=== PATIENT | male | born 1985 | race African-American/Black ===

== ENCOUNTER 2017-05-01 06:39 | Emergency (ER) | payer MEDICAID ==
[2017-05-01 07:01] LABS: HEMATOCRIT 44.9 % (42.0-54.0); HEMOGLOBIN 15.1 g/dL (13.5-17.5); LYMPHOCYTES 19.6 % (15-50); MCH 30.2 pg (26.0-34.0); MCHC 33.6 g/dL (31.0-37.0); MCV 89.8 fL (80.0-100.0); MEAN PLATELET VOLUME 9.4 fL (7.4-10.4); NEUTROPHILS 75.1 % (40-80); PLATELET COUNT 274 10x3/uL (130-400); RDW 14.7 % (11.5-14.5)
[2017-05-01 07:15] LABS: ALBUMIN 3.7 g/dL (3.4-5.0); ALKALINE PHOSPHATASE 84 U/L (46-116); ALT (SGPT) 101 U/L (10-68); BILIRUBIN - TOTAL 0.53 mg/dL (0.2-1.3); CALC OSMOLALITY 268 mosm/kg (275-300); CALCIUM 9.1 mg/dL (8.5-10.1); CARBON DIOXIDE 24.8 mmol/L (21.0-32.0); CHLORIDE - SERUM 99 mmol/L (98-107); CREATININE - SERUM 1.1 mg/dL (0.6-1.3); GLUCOSE 123 mg/dL (74-106); PROTEIN - SERUM 8.2 g/dL (6.4-8.2); SODIUM 134 mmol/L (136-145); UREA NITROGEN 12 mg/dL (7-18); eGFR NON AFRICAN AMERICAN 82 mL/min (90-120)
[2017-05-01 07:29] LABS: APPEARANCE CLEAR (CLEAR); BACTERIA FEW /hpf (NONE SEEN); BILIRUBIN NEGATIVE (NEGATIVE); COLOR DK YELLOW (YELLOW); EPITHELIAL CELLS 0-5 /hpf (0-5); GLUCOSE NEGATIVE (NEGATIVE); KETONE MODERATE mg/dL (NEGATIVE); MUCUS >1+ /lpf (NONE SEEN); NITRITE NEGATIVE (NEGATIVE); PROTEIN TRACE mg/dL (NEGATIVE); RED CELLS - URINE 0-5 /hpf (0-5); UROBILINOGEN NORMAL (NORMAL); WHITE CELLS - URINE 0-5 /hpf (0-5)
[2017-05-01 08:21] LABS: AMYLASE - SERUM 32 U/L (25-115); LIPASE 62 U/L (73-393)
== END 2017-05-01 10:01 | disposition home or self-care (01) ==
LOC: D.ER 06:39
PROVIDERS: Emergency Medicine
DX: R10.9 Unspecified abdominal pain (principal); R11.10 Vomiting, unspecified; F17.200 Nicotine dependence, unspecified, uncomplicated

== ENCOUNTER 2020-09-19 08:40 | Inpatient (IN) | payer OTHER ==
[~2020-09-19] VITALS: Ht 193 cm; Wt 157.3 kg
[2020-09-19] VITALS (15 sets, daily range): BP systolic 82–140; BP diastolic 57–101; Ht 193 cm; Wt 157.3 kg
--- NOTE | ~2020-09-19 | OP ---
PATIENT NAME: JOSE ANTONIO EMERY MEDICAL RECORD: [id number] :83 LOCATION:[facility] D.2301 ADMISSION DATE:09/19/20 SURGEON: MARK ZHAO MD DATE OF OPERATION: 09/19/2020 PROCEDURE: Left heart catheterization. CLINICAL HISTORY: The patient is a 34-year-old -[place] male with history of ETOH abuse and obesity, who presented with complaints of chest pain and discomfort. The patient was noted to be in atrial fibrillation/atrial flutter. The patient was initially placed on Cardizem drip. The patient's troponin was abnormal from 0-21. Asked to evaluate from a cardiovascular standpoint given the patient's complaints of chest pain and abnormal troponin. After the patient was evaluated in the ER, I discussed with the patient regarding going to the cardiac catheterization lab for possible urgent/emergent left heart catheterization. Consent was obtained and on chart. The patient now transferred to the cardiac catheterization lab. DESCRIPTION OF PROCEDURE: The right groin was prepped and draped in sterile fashion. 1% Xylocaine applied to the right femoral region. Percutaneous access to the right femoral obtained via Seldinger technique. The pigtail catheter was advanced over a guidewire under fluoroscopic guidance. Intra-arterial obtain central aortic pressure, pigtail catheter was advanced via left ventricular chamber. After obtaining left ventricular pressures, left ventriculogram was obtained in standard BAÑUELOS projection. The pigtail catheter removed over the guidewire. Left Roxy 4 carry catheter advanced over a guidewire under fluoroscopic guidance to the coronary cusp. Left Roxy seen in the ostium of the left main. Coronary angiogram of the left coronary artery was obtained. Left Roxy was removed over a guidewire. Right Roxy advanced over a guidewire under fluoroscopic guidance to the coronary cusp. Left circumflex right took the arises from the right coronary artery. Contrast angiogram of right groin was obtained. Right Roxy removed. Sheath was aspirated and flushed. The patient tolerated the procedure without complication. The sheath was removed with placement of ExoSeal. FINDINGS: Left ventricle -- dilated cardiomyopathy with global LV contractile dysfunction, ejection fraction 35%. Coronary, left main -- normal 0 stenosis. LAD with 10% plaquing, otherwise normal. Circumflex, noted to have distal occlusion of the circumflex vessel, otherwise unremarkable coronary disease. RCA normal. Right dominant coronary artery system. IMPRESSION: 1. Dilated cardiomyopathy with moderate global left ventricular contractile dysfunction, ejection fraction approximately 35%. 2. Coronary angiogram revealed a distal thrombosis of the circumflex terminal branch. Otherwise, no evidence of significant epicardial coronary artery disease. TRANSINT:[id number] Voice Confirmation ID: [id number] DOCUMENT ID: [id number] OPERATIVE REPORT [id number] JOSE ANTONIO EMERY MOSES MD CC: [id number] DICTATION DATE: 09/19/20 144 SPEECH THERAPIST: 09/19/20 1835 ADM IN [facility] [address] [id number]
--- NOTE | ~2020-09-19 | EC ---
PATIENT:JOSE ANTONIO EMERY DATE OF SERVICE: 09/19/20 SEX: M MEDICAL RECORD: [id number] DATE OF : [birth year] LOCATION:D. D.211 AGE OF PATIENT: 34 ADMISSION DATE: 09/19/20 REFERRING PHYSICIAN: INTERPRETING PHYSICIAN: MARK ZHAO MD ECHOCARDIOGRAM REPORT ECHO CHARGES 4 ECHO COMPLETE Date: 09/20/20 CLINICAL DIAGNOSIS: SOB, NEW AFIB W/RVR ECHOCARDIOGRAPHIC MEASUREMENTS (adult normal given) AC root (d.<3.7cm) 3.4 cm LV Septum d (<1.2 cm> 0.9 cm Valve Excursion 2.0 cm LV Septum (systole) 1.0 cm Left Atria (s.<4.0cm> 5.2 cm LVPW d(<1.2cm) 0.8 cm RV (d.<2.3cm) 3.0 cm LVPW (sytole) 1.1 cm LV diastole(<5.6CM) 6.8 cm MV E-F(>70mm/sec) cm LV systole 6.0 cm LVOT Diameter 1.6 cm MV exc.(>10mm) 1.5 cm Est.ejection fraction (50-75%) % DOPPLER: LVIT cm/sec A 32 cm/sec E 89 cm/sec LA cm/sec RVSP 49 mmHg LVOT 91 cm/sec AOP1/2T m/s Asc. Ao 109 cm/sec RVOT 48 cm/sec RA cm/sec PA 55 cm/sec AV Gradient Peak 4.8 mmHg AV Mean 2.9 mmHg AV Area 1.9 cm MV Gradient Peak 6.5 mmHg MV Mean 2.4 mmHg MV Area cm COMMENTS: Core Rescuer: Cat [employer] Chemist: 2 Dr. Freitas TAPE# Pericardial Effusion N DATE OF SERVICE: CLINICAL INDICATION: Atrial fibrillation; shortness of breath. INTERPRETATION: Dilated left ventricular chamber with severe LV global contractile dysfunction with ejection fraction of 25% to 30%. Left atrial chamber enlargement. Right atrial and right ventricular chamber size and function appears normal. Aortic valve appears normal. No aortic stenosis/regurgitation. Mitral valve appears normal. Mild mitral regurgitation. Tricuspid valve appears normal. Mild tricuspid regurgitation. ECHOCARDIOGRAM REPORT [id number] JOSE ANTONIO EMERY Tricuspid velocity of 3.1 meters per second. Estimated PA pressure is 48 mmHg suggestive of mild pulmonary hypertension. Pulmonic valve appears normal. No pulmonary insufficiency. No pericardial effusion visualized. IMPRESSION: Dilated left ventricular chamber with severe global left ventricular contractile dysfunction with ejection fraction of 25% to 30%. TRANSINT:[id number] Voice Confirmation ID: [id number] DOCUMENT ID: [id number] MARK ZHAO MD CC: [id number] DICTATION DATE: 09/20/20 1526 ORACLE MANAGER: 09/20/201927 ADM IN [facility] [address] [place] [address]
--- NOTE | ~2020-09-19 | HEMODYNAMI ---
PATIENT:JOSE ANTONIO EMERY MEDICAL RECORD: [id number] : 83 LOCATION[facility] D.2301 ADMISSION DATE: 09/19/20 Generatedon:114:40 Patient name: JOSE ANTONIO EMERY Patient #: [id number] SSN: : 1985 Date of study: 09/19/2020 Page: Of Hemodynamic Procedure Report Patient Data Patient Demographics Procedure consent was obtained First Name: JOSE ANTONIO Gender: Male Last Name: RUPERT : 1985 Patient #: [id number] Age: 34 year(s) Race: Black Additional ID: [id number] Contact details Address: [address] [place] [address] [place]: [place] [facility] [place]: [address] Admission Admission Data Admission Date: 09/19/2020 Admission Time: 8:40 Admit Source: Emergency department Room #: D.2301 Height (in.): 75.98 BSA: 2.7 (m2) Height (cm.): 193 BMI: 38.93 (kg/m2) Weight (lbs.): 319.67 Weight (kg.): 145 Lab Results Lab Result Date: 09/19/2020 Lab Result Time: 0:00 Biochemistry Name Units Result Min Max BUN mg/dl 9 --(*---)-- 7 18 CK-MB ng/ml 55 --(----)-* 0 3.6 Creatinine mg/dl 1.5 --(----)-* 0.6 1.3 eGFR ml/min 67.33064 *-(----)-- 90 120 AM Troponin l ng/ml 21.6 --(----)-* 0 0.06 CBC Name Units Result Min Max Hematocrit % 46 --(-*--)-- 42 54 Hemoglobin g/dl 15.6 --(--*-)-- 13.5 17.5 Procedure Procedure Types Cath Procedure Diagnostic Procedure [facility] w/Coronaries Sedation Charges Moderate Sedation 10-24 minutes PCI Procedure Hemochron ACT Test Procedure Description Procedure Date Procedure Date: 09/19/2020 Procedure Start Time: 13:49 Procedure End Time: 14:21 Procedure Staff Name Function Rosa Loaiza RT Scrub Wolfgang Montano RN Nurse Faiza Marvin RT Monitor Madison Chaudhry MD Performing Physician Procedure Data Cath Procedure Fluoroscopy Diagnostic fluoroscopy Total fluoroscopy Time: 2.8 time: 2.8 min min Diagnostic fluoroscopy Total fluoroscopy dose: dose: 1264 mGy 1264 mGy Contrast Material Contrast Material Type Amount (ml) Isovue 300 89 Entry Location Entry Primary Successful Side Size Upsize Upsize Entry Closure Succes sful Closure Location (Fr) 1 (Fr) 2 (Fr) Remarks Device Remarks Femoral Right 6 Fr Exoseal artery Short Estimated blood loss: 5 ml Diagnostic catheters Device Type Used For End Catheter Placement MULTIPACK Pigtail 5 Fr Procedure catheter MULTIPACK JL 4.0 5Fr Procedure catheter MULTIPACK 3DRC 5Fr Procedure catheter Procedure Complications No complications Procedure Medications Medication Administration Route Dosage 0.9% NaCl I.V. 100 ml/hr Oxygen etCO2 Nasal cannula 2 l/min Heparin Flush Bag added to field 2 bags (1000units/500ml NS) Lidocaine 2% added to field 20 Heparin Drip 1000 units/hr (02346henbu/250 D5W) Cardizem 15 mg/hr (125mg/125ml NS) Versed I.V. 1 mg Fentanyl I.V. 50 mcg Cardizem 10 mg/hr (125mg/125ml NS) Integrilin (Bolus I.V. 11.3 ml 2mg/ml) Integrilin (Bolus wasted 8.7 ml 2mg/ml) Integrilin Drip I.V. drip 20 ml/hr (75mg/100ml) Hemodynamics Rest BSA: 2.7 (m2) HGB: 15.6 (g/dl) O2 Consumption: Estimated: 358.72 (ml/min) O2 Con sumption indexed: Estimated:132.86 (ml/min/m) Heart Rate: 94 (bpm) Pressure Samples Time Site Value (mmHg) Purpose Heart Use Rate(bpm) 13:57 LV 100/-15,17 Snapshot 91 Gradients Valve Time Site Site Mean SEP/DFP Peak To Heart Use 1 2 (mmHg) (sec/min) Peak Rate (mmHg) (bpm) Aortic 13:58 LV AO 104 Snapshots Pre Cath Intra NCS Post Cath Vital Signs Time Heart Resp SPO2 etCO2 NIBP (mmHg) Rhythm Pain Sedation Rate (ipm) (%) (mmHg) Status Level (bpm) 13:46:39 106 26 96 16.6 115/83(91) A-Flutter 0 (11) 10(A) , No pain 13:50:47 104 40 98 13.6 100/78(92) A-Flutter 0 (11) 10(A) , No pain 13:54:55 93 30 95 19.6 112/74(105) A-Flutter 0 (11) 10(A) , No pain 13:59:03 89 35 93 15.1 119/88(103) A-Flutter 0 (11) 9(A) , No pain 14:03:19 98 38 15.1 103/76(99) A-Flutter 0 (11) 9(A) , No pain 14:07:20 87 34 97 13.6 124/99(107) A-Flutter 0 (11) 9(A) , No pain 14:11:40 93 27 18.1 122/64(107) A-Flutter 0 (11) 9(A) , No pain 14:16:03 95 37 15.1 117/63(96) A-Flutter 0 (11) 9(A) , No pain 14:21:02 96 20 15.1 Measuring A-Flutter 0 (11) 9(A) , No pain 14:21:12 93 34 88 15.1 115/80(101) A-Flutter 0 (11) 9(A) , No pain Medications Time Medication Route Dose Verified Delivered Reason N otes Effectiveness by by 13:46:03 0.9% NaCl I.V. 100 Wolfgang Wolfgang Per physician ml/hr Charmaine Montano RN RN 13:46:12 Oxygen etCO2 2 l/min Wolfgang Wolfgang for low 02 sats Nasal Charmaine Montano cannula RN RN 13:46:24 Heparin Flush added to 2 bags Wolfgang Wolfgang used for Bag field Charmaine Montano procedure (1000units/500ml RN RN NS) 13:46:34 Lidocaine 2% added to 20ml Wolfgang Wolfgang for local field vial Lorigan Cindyigan anesthetic RN RN 13:47:18 Heparin Drip I.V. 1,000 Wolfgang Wolfgang for (91526jrjrk/250 drip ( units/hr Lorigan Lorronda anticoagulation D5W) infusing RN RN from the ER ) 13:49:52 Cardizem I.V. 15 mg/hr Wolfgang Wolfgang for arrhythmia (125mg/125ml NS) drip ( Lorigan Lorronda infusing RN RN from the ER ) 13:51:49 Versed I.V. 1 mg Wolfgang Wolfgang for sedation Charmaine Montano RN RN 13:51:59 Fentanyl I.V. 50 mcg Wolfgang Wolfgang for sedation Charmaine Montano RN RN 13:57:40 Cardizem I.V. 10 mg/hr Wolfgang Wolfgang for arrhythmia (125mg/125ml NS) drip ( Lorigan Lorronda infusing RN RN from the ER ) 14:19:46 Integrilin I.V. 11.3 ml Wolfgang Wolfgang for (Bolus 2mg/ml) Charmaine Montano antiplatelet RN RN therapy 14:25:03 Integrilin wasted 8.7 ml Wolfgang Wolfgang to sharp's (Bolus 2mg/ml) Charmaine Montano RN RN 14:25:20 Integrilin Drip I.V. 20 ml/hr Wolfgang Wolfgang for (75mg/100ml) drip Charmaine Montano antiplatelet RN RN therapy Procedure Log Time Note 13:21:27 Informed consent obtained and on chart 13:22:44 Procedure Status Urgent Heart Cath (IP). 13:23:09 Time tracking: Regular hours (M-F 7:00 - 5:00) 13:23:14 Plan of Care:Hemodynamics will remain stable., Cardiac rhythm will remain stable., Comfort level will be maintained., Respiratory function will remain adequate., Patient/ family verbilizes understanding of procedure., Procedure tolerated without complication., Recovers from procedure without complications.. 13:23:16 Faiza Marvin RT(R) sent for patient. Start room use. 13:23:41 H&P Date Dictated: 09/19/2020 ER History on chart.. 13:36:34 Admit Source: Emergency department 13:36:42 Patient received from ED to CCL 1 Alert and oriented. Tansferred to table in Supine position. 13:36:43 Warm blankets applied, and les hugger turned on for patient comfort. 13:36:44 ECG and BP/O2 sat monitors applied to patient. 13:36:44 Correct patient and procedure confirmed by team. 13:36:48 Pre-procedure instructions explained to patient. 13:36:49 Pre-op teaching completed and patient verbalized understanding. 13:36:55 Family unavailable. 13:36:58 Patient NPO since Breakfast. 13:37:17 Is the patient allergic to Iodine/contrast media? No. 13:37:19 Was the patient premedicated? No 13:37:20 Is patient on blood thinner?No 13:37:22 Patient diabetic? No. 13:37:24 If diabetic: On Metformin? N/A 13:37:26 ----Pre-sedation anethsthesia assessment.---- 13:37:29 Previous problem with sedation/anesthesia? No ? 13:37:30 Snore? Yes 13:37:32 Sleep apnea? Unknown 13:37:36 Deviated septum? No 13:37:37 Opens mouth fully? Yes 13:37:38 Sticks out tongue? Yes 13:37:41 Airway obstruction? No ? 13:37:43 Dentures? No ? 13:37:52 IV patent on arrival in left antecubital with 0.9% NaCl at [facility]. 13:39:16 Lab Result : eGFR AM 67.56856 ml/min 13:39:16 Lab Result : Hemoglobin 15.6 g/dl 13:39:16 Lab Result : Hematocrit 46 % 13:39:16 Lab Result : Troponin l 21.6 ng/ml 13:39:16 Lab Result : BUN 9 mg/dl 13:39:16 Lab Result : Creatinine 1.5 mg/dl 13:39:16 Lab Result : CK-MB 55 ng/ml 13:39:21 Lab results completed and on chart. 13:39:24 Stress Test: no; N/A ? 13:39:28 Right groin area was prepped with chlora-prep and draped in sterile fashion 13:39:29 Sharps counted by scrub and verified by R.N. 13:39:29 Alarms reviewed by R. N. 13:39:36 ACC Patient presents with Non-STEMI CCS Anginal Class 2--Slight limitation of ordinary activity. 13:39:40 Vital chart was started 13:39:41 Full Disclosure recording started 13:39:45 Baseline sample Acquired. 13:39:49 Use device set Femoral Dx 13:39:50 ACIST Syringe (09345) opened to sterile field. 13:39:51 Bag Decanter (2002S) opened to sterile field. 13:39:52 ACIST Hand Control (00092) opened to sterile field. 13:39:52 Medline Cath Pack ([id number]) opened to sterile field. 13:39:53 ACIST Manifold (16899) opened to sterile field. 13:39:54 DIAGNOSTIC Multipack 5Fr catheter set (GP6255) opened to sterile field. 13:39:58 EMERALD Guide Wire (878-233) opened to sterile field. 13:39:59 Tegaderm 4 x 4 (1626W) opened to sterile field. 13:40:07 SHEATH 6FR [place] (ISI669) opened to sterile field. 13:40:27 Rhythm: atrial flutter 13:45:34 Final Timeout: patient, procedure, and site verified with staff and physician. All members of the team are in agreement. 13:45:34 --------ALL STOP TIME OUT------ 13:45:36 Right groin site verified by team. 13:45:38 Fire Safety Assessment: A--An alcohol-based skin anteseptic being used preoperatively., C--Open oxygen or nitrous oxide is being used., D--An ESU, laser, or fiber-optic light is being used. 13:45:41 Physical assessment completed. ASA score P 3 - A patient with severe systemic disease as per Madison Chaudhry MD. 13:45:47 Sedation plan: IV Moderate Sedation Medication:Versed, Fentanyl 13:46:03 0.9% NaCl 100 ml/hr I.V. was administered by Wolfgang Montano RN; Per physician; Verbal order read back and verified. 13:46:12 Oxygen 2 l/min etCO2 Nasal cannula was administered by Wolfgang Montano RN; for low 02 sats; Verbal order read back and verified. 13:46:17 2) 60-89 Mildly reduced kidney function, and other findings (as for stage 1) point to kidney disease. 13:46:20 Maximum allowable contrast dose (3.7 X eGFR X 0.75)189 ml. 13:46:24 Heparin Flush Bag (1000units/500ml NS) 2 bags added to field was administered by Wolfgang Montano RN; used for procedure; Verbal order read back and verified. 13:46:34 Lidocaine 2% 20ml vial added to field was administered by Wolfgang Montano RN; for local anesthetic; Verbal order read back and verified. 13:46:37 Patient Weight : 319.67 lbs 13:46:42 Patient Height : 75.98 inches 13:47:18 Heparin Drip (28733txcup/250 D5W) 1,000 units/hr I.V. drip ( infusing from the ER ) was administered by Wolfgang Montano RN; for anticoagulation; Verbal order read back and verified. 13:48:46 Procedure started. 13:49:13 Local anesthetic to right femoral artery with Lidocaine 2% by Madison Chaudhry MD.INITIAL ACCESS ONLY 13:49:52 Cardizem (125mg/125ml NS) 15 mg/hr I.V. drip ( infusing from the ER ) was administered by Wolfgang Montano RN; for arrhythmia; Verbal order read back and verified. 13:51:49 Versed 1 mg I.V. was administered by Wolfgang Montano RN; for sedation; Verbal order read back and verified. 13:51:59 Fentanyl 50 mcg I.V. was administered by Wolfgang Montano RN; for sedation; Verbal order read back and verified. 13:54:26 A 6 Fr Short sheath was inserted into the Right Femoral artery 13:55:41 A MULTIPACK Pigtail 5 Fr catheter was advanced over the wire and used for Procedure. 13:56:35 Zero performed for pressure channel P1 13:57:34 LV gram done using BAÑUELOS 13:57:36 Injector settings: Ml/sec: 10, Volume: 20, 13:57:40 Cardizem (125mg/125ml NS) 10 mg/hr I.V. drip ( infusing from the ER ) was administered by Wolfgang Montano RN; for arrhythmia; Verbal order read back and verified. 13:58:00 LV hemodynamics recorded. 13:58:45 EF : 35 % 13:58:57 Catheter exchanged over wire. 14:00:02 A MULTIPACK JL 4.0 5Fr catheter was advanced over the wire and used for Procedure. 14:03:08 LCA angiography performed. 14:03:40 Catheter exchanged over wire. 14:05:02 A MULTIPACK 3DRC 5Fr catheter was advanced over the wire and used for Procedure. 14:07:33 RCA angiography performed. 14:14:39 Catheter removed. 14:14:48 EXOSEAL 6Fr (EX600) opened to sterile field. 14:14:48 ACT drawn and resulted at ? seconds. (normal therapeutic range 180-240 seconds). 14:16:44 Sheath removed intact; hemostasis achieved with Exoseal to the Right Femoral artery. 14:16:51 Procedure ended.(Physican Out) 14:17:36 Fluoroscopy time 02.80 minutes. 14:17:43 Fluoroscopy dose: 1264 mGy 14:17:43 Flurop Dose total: 1264 14:17:48 Contrast amount:Isovue 300 89ml. 14:17:55 Dose Area Product 55808 mGy/cm. 14:17:57 Maximum allowable dose exceeded? No. 14:17:58 Sharps counted by scrub and verified by R.N. 14:18:00 Post-op/insertion site Right Femoral artery dressed using a 4 x 4 and Tegaderm. 14:18:08 Post-procedure physical assessment completed. ASA score P 3 - A patient with severe systemic disease as per Madison Chaudhry MD. 14:18:31 Post procedure rhythm: unchanged. 14:18:32 Estimated blood loss: 5 ml 14:18:34 Patient needs reinforcement of post procedure teaching. 14:18:34 Post procedure instruction explained to patient.Patient verbalizes understanding. 14:19:12 ACT drawn and resulted at 208 seconds. (normal therapeutic range 180-240 seconds). 14:19:46 Integrilin (Bolus 2mg/ml) 11.3 ml I.V. was administered by Wolfgang Montano RN; for antiplatelet therapy; Verbal order read back and verified. 14:19:49 Procedure type changed to Cath procedure, Diagnostic procedure, LHC, LHC w/Coronaries, Sedation Charges, Moderate Sedation 10-24 minutes, PCI procedure, Hemochron ACT Test 14:20:59 Procedure and supply charges have been captured, reviewed, submitted and are correct. 14:21:04 Procedure Complication : No complications 14:21:06 Vital chart was stopped 14:21:08 [facility] Findings: mild to moderate CAD (<70%) 14:21:09 See physician's report for complete and final results. 14:21:09 Operative report dictated upon procedure completion. 14:21:13 Report given to ICU. 14:21:15 Patient transfered to ICU with Bed. 14:21:17 Full Disclosure recording stopped 14:21:17 Procedure ended. 14:21:23 End room use (Document Last) 14:25:03 Integrilin (Bolus 2mg/ml) 8.7 ml wasted was administered by Wolfgang Montano RN; to sharp's; Verbal order read back and verified. 14:25:20 Integrilin Drip (75mg/100ml) 20 ml/hr I.V. drip was administered by Wolfgang Montano RN; for antiplatelet therapy; Verbal order read back and verified. Device Usage Item Name Manufacture Quantity Catalog Hospital Part Current Minimal L ot# / Number Charge Number Stock Stock Serial# Code ACIST Acist 1 09658 612652 446110 154196 20 Syringe Medical (78490) Systems Inc Bag Microtek 1 2001S 670227 90846 569475 5 Decanter Medical Inc. () Medline Medline 1 [id number] 154248 73675 707170 5 Cath Pack ([id number]) ACIST Hand Acist 1 66712 089785 809317 043500 5 Control Medical (42239) Systems Inc ACIST Acist 1 19954 180313 799137 627534 5 Manifold Medical (46453) Systems Inc DIAGNOSTIC Cardinal 1 [id number] 263076 97051 387711 30 Multipack Health 5Fr catheter set (IF3983) EMERALD Cardinal 1 502-455 603621 563255 247416 5 Guide Wire Health (502455) Tegaderm 4 3M 1 1626W 382680 116048 876474 5 x 4 (1626W) SHEATH 6FR Terumo 1 [id number] 161424 255265 731524 40 [place] (XZA931) MULTIPACK Cardinal 1 992556 5 Pigtail 5 Health Fr catheter MULTIPACK Cardinal 1 924442 5 JL 4.0 5Fr Health catheter MULTIPACK Cardinal 1 054233 5 3DRC 5Fr Health catheter EXOSEAL 6Fr Cardinal 1 EX600 138677 343775 222453 10 (EX600) Health Signature Audit [place] Stage Time Signature Unsigned Intra-Procedure 09/19/2020 Faizajonnie Marvin 2:26:55 PM RT(R) Intra-Procedure 09/19/2020 Wolfgang 2:27:20 PM Charmaine HORAN Intra-Procedure 09/19/2020 Madison Chaudhry 2:40:26 PM [facility] [address] [place] [address]
--- NOTE | ~2020-09-19 | CN ---
PATIENT NAME:JOSE ANTONIO EMERY MEDICAL RECORD: [id number] : 83 LOCATION:[id number] ADMIT DATE: 09/19/20 ACCOUNT: [id number] CONSULTING PHYSICIAN: MARK ZHAO MD REFERRING PHYSICIAN: ODALYS ORTEGA MD DATE OF CONSULTATION: 09/19/2020 HISTORY OF PRESENT ILLNESS: The patient is a 34-year-old -Aust[place] male with history of ETOH abuse and obesity, who presented with complaints of palpitations as well as chest pain symptoms. The patient is known to have atrial fibrillation/atrial flutter with rapid ventricular response. The patient received a Cardizem drip. The patient's initial ECG and repeat EKGs were unremarkable except for the atrial dysrhythmias. The patient's troponin was drawn and returned abnormal with a level of 21. The patient's repeat troponin trended upward to 34. After evaluation of the patient, I desire to take the patient to the cardiac catheterization lab for further evaluation and management. PAST MEDICAL HISTORY: Significant for; 1. Chest pain/discomfort -- acute coronary syndrome -- non-STEMI. 2. ETOH abuse. 3. Atrial fibrillation/atrial flutter -- unknown duration. 4. Obesity. MEDICATIONS: 1. Heparin drip. 2. Cardizem drip. HABITS: ETOH abuse. PHYSICAL EXAMINATION: GENERAL: Obese black male, lying, in no apparent distress. VITAL SIGNS: Blood pressure 100s over 70s, pulse 90s (irregular). HEENT: Sclerae are muddy; conjunctivae pink. NECK: Supple; no appreciated JVD/carotid bruits. HEART: Regular rhythm and rate. LUNGS: Clear. ABDOMEN: Obese. EXTREMITIES: Negative for edema. NEUROLOGIC: Nonfocal. LABORATORY DATA: Troponin 21.6/34.8. CK 727, MB 55. White blood cell count 9.7, hemoglobin and hematocrit 15.6 and 46.0, platelet count 355. PT/INR 14.3/1.2. Sodium 136, potassium 3.8, creatinine 1.5, BUN of 9. BNP 6900. DIAGNOSTIC DATA: EKG, atrial fibrillation with rapid ventricular response; repeat EKG, atrial flutter with controlled ventricular rate in the 90s. No acute ST-T wave changes on either ECG ASSESSMENT: 1. Acute coronary syndrome/chest pain -- rvj-GJ-kvginjrou myocardial infarction. 2. Atrial fibrillation/atrial flutter -- duration unknown. 3. ETOH abuse. 4. Obesity. CONSULT REPORT [id number] JOSE ANTONIO EMERY PLAN: Continue with current medical management at this time. The patient will be taken to cardiac catheterization lab to undergo urgent/emergent left heart catheterization to evaluate LV function, coronary anatomy. Further recommendations as clinically indicated. Thank you for allowing me to participate in the care of this patient. TRANSINT:[id number] Voice Confirmation ID: [id number] DOCUMENT ID: [id number] MARK ZHAO MD CC: [id number] DICTATION DATE: 09/19/201449 RETAIL CASHIER ASSOCIATE: 09/19/201916 ADM IN [facility] [address] [id number]
[2020-09-19 09:16] LABS: CALC OSMOLALITY 271 mosm/kg (275-300); CALCIUM 9.2 mg/dL (8.5-10.1); CARBON DIOXIDE 22.4 mmol/L (21.0-32.0); CHLORIDE - SERUM 100 mmol/L (98-107); CREATININE - SERUM 1.5 mg/dL (0.6-1.3); GLUCOSE 121 mg/dL (74-106); POTASSIUM - SERUM 3.8 mmol/L (3.5-5.1); SODIUM 136 mmol/L (136-145); UREA NITROGEN 9 mg/dL (7-18); eGFR NON AFRICAN AMERICAN 56 mL/min (90-120)
[2020-09-19 09:19] LABS: BASOPHILS 0.4 % (0-2); EOSINOPHILS 1.5 % (0-7); HEMOGLOBIN 15.6 g/dL (13.5-17.5); IMMATURE GRANULOCYTES 0.3 % (0-5); LYMPHOCYTE ABS# 3.32 10x3/uL (1.32-3.57); LYMPHOCYTES 34.3 % (15-50); MCH 32.2 pg (26.0-34.0); MCHC 33.9 g/dL (31.0-37.0); MEAN PLATELET VOLUME 10.2 fL (7.4-10.4); MONOCYTES 8.2 % (2-11); NEUTROPHIL ABS# 5.36 10x3/uL (1.78-5.38); NEUTROPHILS 55.3 % (40-80); RBC 4.84 10x6/uL (4.20-6.10); RDW 14.3 % (11.5-14.5); WBC 9.7 10x3/uL (4.8-10.8)
[2020-09-19 09:26] LABS: PLATELET COUNT 355 10x3/uL (130-400)
[2020-09-19 09:33] LABS: ALBUMIN 3.5 g/dL (3.4-5.0); ALKALINE PHOSPHATASE 85 U/L (30-120); ALT (SGPT) 93 U/L (10-68); BILIRUBIN - TOTAL 2.16 mg/dL (0.2-1.3); CKMB 1.2 U/L (0.0-3.6); CREATINE KINASE 153 UL (21-232); MAGNESIUM - SERUM 1.6 mg/dL (1.8-2.4); PROTEIN - SERUM 7.8 g/dL (6.4-8.2); TROPONIN-I 0.025 ng/mL (0.000-0.060)
[2020-09-19 09:38] LABS: INR 1.22 (0.85-1.17); PROTIME 14.3 SECONDS (11.6-15.0)
[2020-09-19 09:39] LABS: D-DIMER-QUANTITATIVE 1.13 ug/mLFEU (0.20-0.54)
[2020-09-19 12:13] LABS: CREATINE KINASE 727 UL (21-232)
[2020-09-19 12:15] LABS: TROPONIN-I 21.689 ng/mL (0.000-0.060)
--- NOTE | 2020-09-19 12:35 | NUR ---
LAB NOTIFIED ME REGARDING PT.'S TROP.-21,000+. NOTIFIED DR. WALSH AND REPEATED EKG AND HENRY/SENT BLOOD FOR CARDIAC ENZYMES.
--- NOTE | 2020-09-19 15:25 | NUR ---
PT ARRIVED ON UNIT, HOOKED TO MONITORS, AFLUTTER ON THE MONITOR, ALERT AND ORIENTED, VSS, CALL LIGHT IN REACH
--- NOTE | 2020-09-19 15:36 | NUR ---
REPORT GIVEN TO JOSEE.
--- NOTE | 2020-09-19 16:30 | NUR ---
CONVERTED TO NSR 90S RATES.
--- NOTE | 2020-09-19 17:15 | NUR ---
DR. LYNN PAGED TO CLARIFY HEPARIN GTT ORDER AND HE D/CS IT.
[2020-09-19 20:18] LABS: CKMB 96.2 U/L (0.0-3.6)
[2020-09-19 20:20] LABS: CREATINE KINASE 1078 UL (21-232); TROPONIN-I 37.792 ng/mL (0.000-0.060)
[2020-09-20] VITALS (11 sets, daily range): BP systolic 111–155; BP diastolic 71–100
[2020-09-20 02:15] LABS: CKMB 76.9 U/L (0.0-3.6)
[2020-09-20 02:16] LABS: CREATINE KINASE 1015 UL (21-232)
[2020-09-20 02:17] LABS: TROPONIN-I 28.355 ng/mL (0.000-0.060)
[2020-09-20 06:45] LABS: BASOPHILS 0.2 % (0-2); EOSINOPHILS 0.3 % (0-7); HEMOGLOBIN 13.8 g/dL (13.5-17.5); IMMATURE GRANULOCYTES 0.3 % (0-5); LYMPHOCYTE ABS# 1.94 10x3/uL (1.32-3.57); LYMPHOCYTES 21.9 % (15-50); MCH 31.9 pg (26.0-34.0); MCHC 33.7 g/dL (31.0-37.0); MCV 94.7 fL (80.0-100.0); MEAN PLATELET VOLUME 10.1 fL (7.4-10.4); MONOCYTES 11.1 % (2-11); NEUTROPHIL ABS# 5.86 10x3/uL (1.78-5.38); NEUTROPHILS 66.2 % (40-80); PLATELET COUNT 313 10x3/uL (130-400); RBC 4.33 10x6/uL (4.20-6.10); RDW 14.5 % (11.5-14.5); WBC 8.9 10x3/uL (4.8-10.8)
[2020-09-20 07:15] LABS: ALBUMIN 3.2 g/dL (3.4-5.0); ALKALINE PHOSPHATASE 72 U/L (30-120); ALT (SGPT) 79 U/L (10-68); BILIRUBIN - TOTAL 1.82 mg/dL (0.2-1.3); CALC OSMOLALITY 270 mosm/kg (275-300); CALCIUM 8.7 mg/dL (8.5-10.1); CHLORIDE - SERUM 102 mmol/L (98-107); CKMB 58.9 U/L (0.0-3.6); CREATINE KINASE 827 UL (21-232); CREATININE - SERUM 1.2 mg/dL (0.6-1.3); GLUCOSE 115 mg/dL (74-106); MAGNESIUM - SERUM 2.1 mg/dL (1.8-2.4); POTASSIUM - SERUM 4.5 mmol/L (3.5-5.1); PROTEIN - SERUM 7.2 g/dL (6.4-8.2); SODIUM 135 mmol/L (136-145); TROPONIN-I 19.369 ng/mL (0.000-0.060); UREA NITROGEN 12 mg/dL (7-18); eGFR NON AFRICAN AMERICAN 73 mL/min (90-120)
--- NOTE | 2020-09-20 09:53 | NUR ---
PT REQUESTING PRN PAIN MED FOR PAIN RATED 7/10. WILL ADMINISTER PRN PAIN MED PER EMAR. NO OTHER COMPLAINTS OR NEEDS AT PRESENT TIME. CALL LIGHT WITHIN REACH.
--- NOTE | 2020-09-20 11:48 | NUR ---
PT TO ROOM FROM ICU. INFUSING ON CARDIZEM GTT. RESTING COMFORTABLY.
[2020-09-20 19:28] LABS: UDS - AMPHET NEGATIVE QUAL (NEGATIVE); UDS - BARB NEGATIVE QUAL (NEGATIVE); UDS - BENZO POSITIVE QUAL (NEGATIVE); UDS - COCAINE NEGATIVE QUAL (NEGATIVE); UDS - OPIATE POSITIVE QUAL (NEGATIVE); UDS - PCP NEGATIVE QUAL (NEGATIVE); UDS - THC POSITIVE QUAL (NEGATIVE)
[2020-09-21 02:11] VITALS: BP 126/86
--- NOTE | 2020-09-21 04:15 | NUR ---
CARDIZEM GTT OFF DURING 7P ROUNDS. RESTARTED GTT TO NEW 20G PIV TO LEFT FA. PT HAS REMAINED IN UCAF 110'S-150'S. ENCOURAGED BEDREST. HAS PERSISTANT DRY COUGH AND C/O OF CHEST PAIN AT TIMES. DENIES FURTHER NEEDS. NO ACUTE DISTRESS. WILL CTM.
[2020-09-21 05:25] VITALS: BP 120/88
[2020-09-21 06:50] LABS: BASOPHILS 0.2 % (0-2); EOSINOPHILS 0.8 % (0-7); HEMATOCRIT 40.5 % (42.0-54.0); HEMOGLOBIN 13.9 g/dL (13.5-17.5); IMMATURE GRANULOCYTES 0.3 % (0-5); LYMPHOCYTE ABS# 1.81 10x3/uL (1.32-3.57); LYMPHOCYTES 20.2 % (15-50); MCH 32.3 pg (26.0-34.0); MCHC 34.3 g/dL (31.0-37.0); MEAN PLATELET VOLUME 11.2 fL (7.4-10.4); MONOCYTES 12.4 % (2-11); NEUTROPHILS 66.1 % (40-80); RBC 4.31 10x6/uL (4.20-6.10); RDW 14.4 % (11.5-14.5); WBC 8.9 10x3/uL (4.8-10.8)
[2020-09-21 06:51] LABS: PLATELET COUNT 213 10x3/uL (130-400)
[2020-09-21 06:58] LABS: ALBUMIN 2.7 g/dL (3.4-5.0); ALKALINE PHOSPHATASE 66 U/L (30-120); ALT (SGPT) 61 U/L (10-68); BILIRUBIN - TOTAL 1.72 mg/dL (0.2-1.3); CALC OSMOLALITY 267 mosm/kg (275-300); CALCIUM 8.3 mg/dL (8.5-10.1); CARBON DIOXIDE 23.8 mmol/L (21.0-32.0); CHLORIDE - SERUM 101 mmol/L (98-107); CREATININE - SERUM 1.1 mg/dL (0.6-1.3); GLUCOSE 90 mg/dL (74-106); MAGNESIUM - SERUM 1.8 mg/dL (1.8-2.4); POTASSIUM - SERUM 3.9 mmol/L (3.5-5.1); PROTEIN - SERUM 6.5 g/dL (6.4-8.2); SODIUM 135 mmol/L (136-145); UREA NITROGEN 8 mg/dL (7-18); eGFR NON AFRICAN AMERICAN 81 mL/min (90-120)
--- NOTE | 2020-09-21 07:55 | NUR ---
PT RECEIVED ASLEEP IN BED, AROUSE TO VOICE. NO NEEDS STATED. CARDIZEM INFUSING.
[2020-09-21 08:42] VITALS: BP 140/86
[2020-09-21 12:58] VITALS: BP 126/91
[2020-09-21 16:00] VITALS: BP 102/79
[2020-09-21 21:31] VITALS: BP 118/69
[2020-09-22 01:11] VITALS: BP 106/79
[2020-09-22 05:19] VITALS: BP 128/89
--- NOTE | 2020-09-22 07:00 | NUR ---
RECEIVED REPORT. ASSUMED CARE OF PATIENT. PATIENT RESTING WITH EYES OPEN, DENIES NEEDS. WHITE BOARD UPDATED, BEDSIDE SHIFT REPORT COMPLETE. NO DISTRESS. UNCONTR AFIB 125 ON TELEMETRY.
[2020-09-22 07:30] VITALS: BP 109/81
[2020-09-22] MEDS ORDERED: METOPROLOL TART25 MG PO (09:59)
[2020-09-22] MEDS ORDERED: ASPIRIN325 MG PO (10:00)
[2020-09-22] MEDS ORDERED: NICODERM CQ1 EAC3 TOPICAL (10:42)
--- NOTE | 2020-09-22 10:49 | NUR ---
DISCUSSED TOBACCO QUITLINE WITH PT. HE STATES HE DOES NOT SMOKE.
[2020-09-22 11:10] LABS: BASOPHILS 0.2 % (0-2); EOSINOPHILS 0.7 % (0-7); HEMATOCRIT 42.6 % (42.0-54.0); HEMOGLOBIN 14.5 g/dL (13.5-17.5); IMMATURE GRANULOCYTES 0.4 % (0-5); LYMPHOCYTE ABS# 2.29 10x3/uL (1.32-3.57); LYMPHOCYTES 21.1 % (15-50); MCH 32.2 pg (26.0-34.0); MCV 94.5 fL (80.0-100.0); MEAN PLATELET VOLUME 10.2 fL (7.4-10.4); MONOCYTES 13.9 % (2-11); NEUTROPHIL ABS# 6.92 10x3/uL (1.78-5.38); NEUTROPHILS 63.7 % (40-80); RBC 4.51 10x6/uL (4.20-6.10); RDW 14.5 % (11.5-14.5); WBC 10.9 10x3/uL (4.8-10.8)
[2020-09-22 11:11] LABS: PLATELET COUNT 358 10x3/uL (130-400)
[2020-09-22 11:46] LABS: ANION GAP 15.9 mmol/L (8-16); BILIRUBIN - TOTAL 1.67 mg/dL (0.2-1.3); CALCIUM 8.7 mg/dL (8.5-10.1); CREATININE - SERUM 1.2 mg/dL (0.6-1.3); POTASSIUM - SERUM 3.9 mmol/L (3.5-5.1); PROTEIN - SERUM 7.4 g/dL (6.4-8.2)
[2020-09-22 11:49] LABS: TROPONIN-I 6.939 ng/mL (0.000-0.060)
--- NOTE | 2020-09-22 11:54 | NUR ---
20 GAUGE IV REMOVED FROM LEFT FOREARM, CATHETER TIP INTACT. NO BLEEDING FROM SITE. 2X2 GAUZE APPLIED AND SECURED WITH BANDAID. TELEMETRY REMOVED AND RETURNED TO BULK MAIL TECHNICIAN. PATIENT LEFT UNIT VIA WHEELCHAIR WITH ALL PERSONAL BELONGINGS AT THIS TIME. PATIENT DISCHARGED TO HOME IN NO ACUTE DISTRESS. PATIENT VERBALIZED UNDERSTANDING OF ALL INSTRUCTIONS PROVIDED. NO DISTRESS UPON LEAVING UNIT AT THIS TIME.
--- NOTE | 2020-09-22 17:01 | MORECARE ---
CASE MANAGEMENT DISCHARGE SUMMARY PATIENT: JOSE ANTONIO EMERY UNIT: [id number] ADM DATE: 09/19/20 AGE: 34 : 84 SEX: M ROOM/BED: D.2118 AUTHOR: KAY,DOC PHYSICIAN: REFERRING PHYSICIAN: ODALYS ORTEGA MD DATE OF SERVICE: 09/22/20 Case Management Discharge Planning Summary COMMENTS ENTERED DATE: 09/22/20 17:00 CT COMMENT TYPE: Discharge Planning REVIEWER: Mike Mcadams CM met with patient to complete DC plan and to evaluate needs. Patient lives independently alone with support. Patient list his person to notify as dinorah Rodrigues, . Patient stated that his home is safe and has electricity and running water. Patient stated that he has no problems paying for medications and he fills his medications at [facility] on [facility]. Patient stated that his primary care physician will be Dr. Yancey. At discharge, the patient plans to return home and feels this is a safe discharge. CM discussed availability of home health, rehab services, and medical equipment. Patient declined HHS, SNF, IPR, and DME. Patient voiced no other needs at this time and is satisfied with DC plan. Transportation provider at discharge will be with his cousin, Aidan Long. CM will continue to follow and will assist as needed with dc plans/needs. [facility] REVIEW SUMMARY ANTICIPATED D/C DATE: 09/22/2020 EXPECTED LOS : 3 CASE STATUS: DCP Initiated INITIAL REVIEW: 09/19/2020 INITIAL REVIEWER: Mkie Mcadams FINAL DISCHARGE DISPOSITION: : FINAL REVIEWER: FINAL REVIEW DATE: MEP Focus Questions & Answers MEP Evaluation QUESTION: ANSWER Patient gives permission to discuss discharge plans with: (name, relationship and number) : dinorah Rodrigues, Patient's ability to cope with chronic illness : d. No chronic illness Patient's current cognitive status: : *Oriented to person, place, situation, time and present Family / Caregiver's ability to cope with chronic illness: : a. Adequate (ability to meet patient's medical needs, ensures patient attends medical appts.) Patient and/or caregiver agree upon recommended discharge plan? : Yes Physical Status: : Independent with ADL's Family / Caregiver's ability to cope with chronic illness: : a. Adequate (ability to meet patient's medical needs, ensures patient attends medical appts.) Functional screen assessment: : Basic needs can adequately be met by self Does the patient have the ability to pay for or attain post discharge needs / services? : Yes Living Arrangements: : Home Alone with Support Is there a likelihood that the patient will require additional services to return to the preadmission environment? : No Equipment needed for post hospitalization: : None Baseline cognitive status: : *Oriented to person, place, situation, time and present Patient with capacity for self-care or can be cared for in same environment as prior to hospitalization? : Yes Physical environment modification needed / anticipated for discharge: : No Medication Management: : Patient states can afford medications Medication Management: : Patient states can read and understand medication labels [facility]): : [facility] Does Patient have transportation to get home and to follow-up medical appointments when discharged from the hospital? : Yes Would patient like to participate in any Care Coordination programs (if applicable): : Not applicable Does the patient have electricity at home? : Yes Does the patient have running water in their house? : Yes Equipment in use: : None Mental health screen: : No mental health history DCP Re-evaluation QUESTION: ANSWER Would patient like to participate in any Care Coordination programs (if applicable): : Not applicable PATIENT: JOSE ANTONIO EMERY ENCOUNTER: [id number] MEDICAL RECORD#: [id number] ADMISSION DATE: 09/19/2020 DISCHARGE DATE: 09/22/2020 ATTENDING MD: ODALYS MONTES : AGE: 34 MARITAL STATUS: X DC PLAN ID: [id number] FACILITY: [facility] PRINTED ON: 09/22/20 17:01 CT All edits/amendments must be made on the electronic document DICTATION DATE: 09/22/201700 ROAD TRAIN DRIVER: OPHELIA 09/22/201700 RPT#: [id number] DC DATE:09/22/20 STATUS: DIS IN [facility] [address] [place] [address] END OF REPORT
--- NOTE | 2020-09-24 07:21 | MORECARE ---
CASE MANAGEMENT DISCHARGE SUMMARY PATIENT: JOSE ANTONIO EMERY UNIT: [id number] ADM DATE: 09/19/20 AGE: 34 : 84 SEX: M ROOM/BED: D.2114 AUTHOR: KAY,DOC PHYSICIAN: REFERRING PHYSICIAN: ODALYS ORTEGA MD DATE OF SERVICE: 09/24/20 Case Management Discharge Planning Summary COMMENTS ENTERED DATE: 09/22/20 17:00 CT COMMENT TYPE: Discharge Planning REVIEWER: Mike Mcadams CM met with patient to complete DC plan and to evaluate needs. Patient lives independently alone with support. Patient list his person to notify as dinorah Rodrigues, . Patient stated that his home is safe and has electricity and running water. Patient stated that he has no problems paying for medications and he fills his medications at [facility] on [facility]. Patient stated that his primary care physician will be Dr. Yancey. At discharge, the patient plans to return home and feels this is a safe discharge. CM discussed availability of home health, rehab services, and medical equipment. Patient declined HHS, SNF, IPR, and DME. Patient voiced no other needs at this time and is satisfied with DC plan. Transportation provider at discharge will be with his cousin, Aidan Long. CM will continue to follow and will assist as needed with dc plans/needs. DCP REVIEW SUMMARY ANTICIPATED D/C DATE: 09/22/2020 EXPECTED LOS : 3 CASE STATUS: DCP Complete INITIAL REVIEW: 09/19/2020 INITIAL REVIEWER: Mike Mcadams FINAL DISCHARGE DISPOSITION: 01 : Home or Self Care (Routine Discharge) FINAL REVIEWER: Mike Mcadams FINAL REVIEW DATE: 09/24/2020 DCP Focus Questions & Answers DCP Evaluation QUESTION: ANSWER Patient's current cognitive status: : *Oriented to person, place, situation, time and present Patient's ability to cope with chronic illness : d. No chronic illness Patient gives permission to discuss discharge plans with: (name, relationship and number) : dinorah Rodrigues, Patient and/or caregiver agree upon recommended discharge plan? : Yes Family / Caregiver's ability to cope with chronic illness: : a. Adequate (ability to meet patient's medical needs, ensures patient attends medical appts.) Functional screen assessment: : Basic needs can adequately be met by self Physical Status: : Independent with ADL's Does the patient have the ability to pay for or attain post discharge needs / services? : Yes Family / Caregiver's ability to cope with chronic illness: : a. Adequate (ability to meet patient's medical needs, ensures patient attends medical appts.) Equipment needed for post hospitalization: : None Is there a likelihood that the patient will require additional services to return to the preadmission environment? : No Living Arrangements: : Home Alone with Support Baseline cognitive status: : *Oriented to person, place, situation, time and present Patient with capacity for self-care or can be cared for in same environment as prior to hospitalization? : Yes Physical environment modification needed / anticipated for discharge: : No Medication Management: : Patient states can afford medications Medication Management: : Patient states can read and understand medication labels [facility] : [facility] Does Patient have transportation to get home and to follow-up medical appointments when discharged from the hospital? : Yes Would patient like to participate in any Care Coordination programs (if applicable): : Not applicable Does the patient have electricity at home? : Yes Does the patient have running water in their house? : Yes Equipment in use: : None Mental health screen: : No mental health history DCP Re-evaluation QUESTION: ANSWER Would patient like to participate in any Care Coordination programs (if applicable): : Not applicable PATIENT: JOSE ANTONIO EMERY ENCOUNTER: [id number] MEDICAL RECORD#: [id number] ADMISSION DATE: 09/19/2020 DISCHARGE DATE: 09/22/2020 ATTENDING MD: ODALYS MONTES : AGE: 34 MARITAL STATUS: X DC PLAN ID: [id number] FACILITY: [facility] PRINTED ON: 09/24/20 7:21 CT All edits/amendments must be made on the electronic document DICTATION DATE: 09/24/20720 TWISTER OPERATOR: OPHELIA 09/24/20720 RPT#: [id number] DC DATE:09/22/20 STATUS: DIS IN [facility] [address] [place] [address] END OF REPORT
== END 2020-09-22 11:58 | disposition home or self-care (01) | DRG 281 ==
LOC: D.ER 08:40 → D.ICU 14:36 → D.ER 18:09 → D.M2 18:11 → D.ICU 18:11 → D.M2 09-20 11:36
PROVIDERS: Family Medicine; Internal Medicine Cardiovascular Disease; ADMIT Family Medicine; ATTEND Family Medicine
PROC: B2151ZZ Fluoroscopy of Left Heart using Low Osmolar Contrast (ICD-10-PCS; 2020-09-19)
PROC: 4A023N7 Measurement of Cardiac Sampling and Pressure, Left Heart, Percutaneous Approach (ICD-10-PCS; 2020-09-19)
PROC: B2111ZZ Fluoroscopy of Multiple Coronary Arteries using Low Osmolar Contrast (ICD-10-PCS; principal; 2020-09-19 13:23)
DX: I21.4 Non-ST elevation (NSTEMI) myocardial infarction (principal); I48.92 Unspecified atrial flutter; N17.9 Acute kidney failure, unspecified; I42.0 Dilated cardiomyopathy; I25.10 Atherosclerotic heart disease of native coronary artery without angina pectoris; I48.91 Unspecified atrial fibrillation; F10.10 Alcohol abuse, uncomplicated; E66.9 Obesity, unspecified; Z68.39 Body mass index [BMI] 39.0-39.9, adult; E87.6 Hypokalemia

== ENCOUNTER 2020-10-21 12:00 | Inpatient (IN) | payer OTHER ==
[~2020-10-21] VITALS: Ht 193 cm; Wt 141.5 kg
[~2020-10-21 12:00] MED LIST: ASPIRIN325 MG PO; METOPROLOL TART25 MG PO; NICODERM CQ1 EAC3 TOPICAL
[2020-10-21 12:22] LABS: BASOPHILS 0.7 % (0-2); EOSINOPHILS 1.6 % (0-7); HEMATOCRIT 46.6 % (42.0-54.0); HEMOGLOBIN 15.2 g/dL (13.5-17.5); LYMPHOCYTES 22.4 % (15-50); MCHC 32.5 g/dL (31.0-37.0); MCV 92.4 fL (80.0-100.0); MEAN PLATELET VOLUME 8.5 fL (7.4-10.4); NEUTROPHILS 63.3 % (40-80); RBC 5.05 10x6/uL (4.20-6.10); RDW 16.4 % (11.5-14.5); WBC 7.3 10x3/uL (4.8-10.8)
[2020-10-21 12:28] LABS: PLATELET COUNT 245 10x3/uL (130-400)
[2020-10-21 12:31] LABS: CALC OSMOLALITY 274 mosm/kg (275-300); CALCIUM 8.8 mg/dL (8.5-10.1); CHLORIDE - SERUM 105 mmol/L (98-107); CREATININE - SERUM 1.5 mg/dL (0.6-1.3); GLUCOSE 110 mg/dL (74-106); SODIUM 137 mmol/L (136-145); UREA NITROGEN 13 mg/dL (7-18); eGFR NON AFRICAN AMERICAN 56 mL/min (90-120)
[2020-10-21 12:34] LABS: APTT 31.1 SECONDS (22.8-39.4); INR 1.4 (0.85-1.17); PROTIME 15.9 SECONDS (11.6-15.0)
[2020-10-21 12:47] LABS: ALBUMIN 3.3 g/dL (3.4-5.0); ALKALINE PHOSPHATASE 72 U/L (30-120); ALT (SGPT) 39 U/L (10-68); CKMB 1.1 U/L (0.0-3.6); CREATINE KINASE 169 UL (21-232); PRO BNP 6696 pg/mL (0-125); PROTEIN - SERUM 7.2 g/dL (6.4-8.2); TROPONIN-I < 0.017 ng/mL (0.000-0.060)
[2020-10-21 13:02] LABS: D-DIMER-QUANTITATIVE 2.65 ug/mLFEU (0.20-0.54)
--- NOTE | 2020-10-21 14:33 | NUR ---
CONSULTED NICO PICKARD AT THIS TIME ABOUT LOW BP AND LASIX ORDER. INSTRUCTED TO DECREASE DILTIAZEM DRIP TO 5MG/HR TO ALLOW FOR BP TO RISE, THEN GIVE LASIX. LASIX IS ON HOLD AT THIS TIME.
[2020-10-21 15:54] VITALS: BP 128/75
--- NOTE | 2020-10-21 16:40 | NUR ---
RECIEVE REPORT. LASIX IV ORDERED AT 1310 NOT GIVEN. NURSE STATES, "DOCTOR WANTED TO WAIT FOR BP TO COME UP FIRST DUE TO CARDIZEM DROPPING BP. HE WANTS IT TO AT LEAST BY 130/60." ASK, "WHAT IS THE BP NOW?" ER NURSE REPLIES, "132/64." REQUEST IV LASIX BE GIVEN ORDERED BEFORE ARRIVING TO FLOOR. ER NURSE REPLIES, "I WILL TRY BUT SOMETIMES MY TRANSPORTERS TAKE THEM BUT I'LL TRY."
--- NOTE | 2020-10-21 16:47 | NUR ---
PT REPORT GIVEN TO GREGORY HORAN AT THIS TIME. AWAITING PT TRANSPORT.
--- NOTE | 2020-10-21 17:30 | NUR ---
ARRIVE TO ROOM VIA WHEELCHAIR FROM ER. AMBULATES TO BED, GAIT STEADY. ALERT AND ORIENTED X4. CARDIZEM INFUSING ORDERED THROUGH LT FA IV. UNCONTROLLED AFIB 135 ON TELEMETRY. REFUSE SCDs. RECIEVES LOVENOX INJ. NO SIGNS OF DISTRESS. CONTINUE ADMISSION PROCESS AND SAFETY PRECAUTIONS.
[2020-10-21] MEDS ORDERED: METOPROLOL TART25 MG PO (17:35)
[2020-10-21] MEDS ORDERED: CARTIA XT120 MG PO (17:36)
[2020-10-21] MEDS ORDERED: ATIVAN1 MG PO (17:37)
[2020-10-21 17:49] VITALS: BP 109/88; BMI 40.9
[2020-10-21 19:12] LABS: THYROID STIMULATING HORMONE 1.35 uIU/mL (0.36-3.74)
--- NOTE | 2020-10-21 19:30 | NUR ---
RECEIVED REPORT, WILL ASSUME CARE OF PT, WATCHING TV, DENIES ANY NEEDS AT THIS TIME, BED IS LOW, SRX2, CALL LIGHT IN REACH, WILL CONTINUE PLAN OF CARE
[2020-10-21 21:00] VITALS: BP 117/84
--- NOTE | 2020-10-21 22:00 | NUR ---
PT BECAME VERY SOB, HAD RT CHECK ON HIM, INCREASED 02-6L, KEENAN DURAN ENTERED ROOM, PLACED NEW ORDERS,
--- NOTE | 2020-10-21 23:10 | NUR ---
FEELING A LITTLE BETTER, WILL CONTINUE PLAN OF CARE
[2020-10-21 23:47] LABS: CKMB 0.7 U/L (0.0-3.6); CREATINE KINASE 129 UL (21-232); TROPONIN-I < 0.017 ng/mL (0.000-0.060)
[2020-10-22] VITALS (7 sets, daily range): BP systolic 104–136; BP diastolic 70–89; Ht 193 cm; Wt 141.5 kg
--- NOTE | 2020-10-22 01:55 | NUR ---
INCREASED CARDIZEM TO 10 ORDERED
[2020-10-22 06:39] LABS: BASOPHILS 0.5 % (0-2); EOSINOPHILS 0.3 % (0-7); HEMATOCRIT 45.9 % (42.0-54.0); HEMOGLOBIN 14.8 g/dL (13.5-17.5); LYMPHOCYTES 26.2 % (15-50); MCH 30.1 pg (26.0-34.0); MCHC 32.3 g/dL (31.0-37.0); MCV 93.1 fL (80.0-100.0); MEAN PLATELET VOLUME 9.2 fL (7.4-10.4); MONOCYTES 10.8 % (2-11); NEUTROPHILS 62.2 % (40-80); PLATELET COUNT 260 10x3/uL (130-400); RBC 4.92 10x6/uL (4.20-6.10); RDW 16.7 % (11.5-14.5); WBC 7.6 10x3/uL (4.8-10.8)
--- NOTE | 2020-10-22 07:00 | NUR ---
RECEIVED REPORT. ASSUMED CARE OF PATIENT. CALL LIGHT WITHIN REACH. PATEINT RESTING WITH EYES CLOSED, RESP EVEN AND UNLABORED, NO DISTRESS. WHITE BOARD UPDATED, BEDSIDE SHIFT REPORT COMPLETED.
[2020-10-22 07:13] LABS: ALBUMIN 3.3 g/dL (3.4-5.0); ALKALINE PHOSPHATASE 68 U/L (30-120); ALT (SGPT) 38 U/L (10-68); BILIRUBIN - TOTAL 1.53 mg/dL (0.2-1.3); CALC OSMOLALITY 283 mosm/kg (275-300); CALCIUM 9.1 mg/dL (8.5-10.1); CARBON DIOXIDE 23.9 mmol/L (21.0-32.0); CHLORIDE - SERUM 106 mmol/L (98-107); CREATINE KINASE 116 UL (21-232); CREATININE - SERUM 1.5 mg/dL (0.6-1.3); GLUCOSE 100 mg/dL (74-106); POTASSIUM - SERUM 4.2 mmol/L (3.5-5.1); PROTEIN - SERUM 7.3 g/dL (6.4-8.2); SODIUM 142 mmol/L (136-145); UREA NITROGEN 15 mg/dL (7-18); eGFR NON AFRICAN AMERICAN 56 mL/min (90-120)
[2020-10-22 07:14] LABS: TROPONIN-I < 0.017 ng/mL (0.000-0.060)
--- NOTE | 2020-10-22 10:01 | NUR ---
URINE COLLECTED FOR UDS AND SUBMITTED TO LAB.
[2020-10-22 10:17] LABS: UDS - AMPHET NEGATIVE QUAL (NEGATIVE); UDS - BARB NEGATIVE QUAL (NEGATIVE); UDS - BENZO NEGATIVE QUAL (NEGATIVE); UDS - COCAINE NEGATIVE QUAL (NEGATIVE); UDS - OPIATE NEGATIVE QUAL (NEGATIVE); UDS - PCP NEGATIVE QUAL (NEGATIVE); UDS - THC POSITIVE QUAL (NEGATIVE)
[2020-10-22 10:56] LABS: CKMB 0.9 U/L (0.0-3.6); CREATINE KINASE 112 UL (21-232); TROPONIN-I < 0.017 ng/mL (0.000-0.060)
--- NOTE | 2020-10-22 12:16 | NUR ---
PATIENT REMAINS IN CONTROLLED AFIB, RATE OF 86 AT THIS TIME PER PIGMENT PUSHER STEWART.
--- NOTE | 2020-10-22 12:40 | NUR ---
IV DRESSING TO LEFT FOREARM CHANGED AT THIS TIME THE CORNERS OF THE OLD DRESSING WERE ROLLING DOWN. PATIENT TOLERATED IV DRESSING CHANGE WELL.
--- NOTE | 2020-10-22 14:14 | NUR ---
IV ACCESS TO LEFT FOREARM LOST. THIS MANAGER TRANSITION ATTEMPTED IV PLACEMENT X 2, UNSUCCESSFUL, ABLE TO GET IN THE VEIN BUT UNABLE TO THREAD CATHETER. MATCHBOOK MAKER, VIKAS, ATTEMPTED X 2 AND ALSO UNSUCCESSFUL WITH THE SAME PROBLEM OF NOT BEING ABLE TO THREAD CATHETER. ICU CALLED AND REQUESTED ASSIST WITH IV PLACEMENT FOR JENS LISA. SPOKE WITH LAMAR IN ICU AND SHE WILL ASK IF ANYONE CAN COME AND PLACE IV. THANKED LAMAR. CHARGE NURSE NOTIFIED THAT ICU HAS BEEN CONTACTED FOR IV PLACEMENT
--- NOTE | 2020-10-22 15:18 | NUR ---
NO IV PLACEMENT AT THIS TIME. PATIENT NOW IN UNCONTROLLED AFIB. CALLED ICU AGAIN TO REQUEST ASSIST WITH IV PLACEMENT. CHARGE NURSE NOTIFIED OF NOW BEING IN UNCONTROLLED AFIB AND ICU HAS BEEN CALLED AGAIN TO REQUEST ASSIST. SPOKE WITH KRISTEN YU IN ICU. CASE MANAGEMENT (RN) IS ALSO LOOKING TO ASSIST WITH IV PLACEMENT.
--- NOTE | 2020-10-22 15:39 | NUR ---
JUNIOR ASSISTANT MANAGER ABLE TO PLACE 20 GAUGE TO RIGHT AC. GOOD BLOOD RETURN, EASY FLUSH. TAPED DATED AND SECURED. IV CARDIZEM NOW INFUSING.
--- NOTE | 2020-10-22 15:51 | NUR ---
NEW ORDERS FOR BLADDER SCAN PT HAS NOT BEEN URINATING WELL WITHOUT LASIX. ORDER TO RESTART ATIVAN BID OBTAINED WELL.
--- NOTE | 2020-10-22 16:14 | NUR ---
BLADDER SCAN COMPLETE, 119ML DETECTED IN BLADDER.
--- NOTE | 2020-10-22 21:06 | NUR ---
ESTABLISHED 20G IV IN PT RAC X1 STICK FOR ANTIBIOTIC ADMIN. WILL CONTINUE TO MONITOR.
--- NOTE | 2020-10-22 22:30 | NUR ---
PT BECAME SOB, VOMITING, AND SWEATING AFTER AZYTHRAMICIN WAs running for 20MIN. PT STATES SAME THING HAPPENED YESTERDAY. THIS NURSE STOPPED INFUSION AND PAGED DR. LEUNG.
--- NOTE | 2020-10-22 22:47 | NUR ---
ALISSA TELLO APN SINCE PCP PRESCRIBED MEDS. OMER HELD AZYTHRAMYSIN AND ROCEPHIN AT THIS TIME. WILL CONTINUE TO MONITOR.
[2020-10-23 04:00] VITALS: BP 106/80
[2020-10-23 05:10] LABS: BASOPHILS 0.5 % (0-2); EOSINOPHILS 0.9 % (0-7); HEMATOCRIT 42.3 % (42.0-54.0); HEMOGLOBIN 13.8 g/dL (13.5-17.5); LYMPHOCYTES 32.4 % (15-50); MCH 30.3 pg (26.0-34.0); MCHC 32.5 g/dL (31.0-37.0); MCV 93.2 fL (80.0-100.0); MEAN PLATELET VOLUME 9.5 fL (7.4-10.4); MONOCYTES 11.4 % (2-11); NEUTROPHILS 54.8 % (40-80); PLATELET COUNT 274 10x3/uL (130-400); RBC 4.54 10x6/uL (4.20-6.10); RDW 16.6 % (11.5-14.5); WBC 7.8 10x3/uL (4.8-10.8)
[2020-10-23 05:39] LABS: ALBUMIN 2.9 g/dL (3.4-5.0); BILIRUBIN - TOTAL 1.19 mg/dL (0.2-1.3); CALCIUM 8.8 mg/dL (8.5-10.1); CARBON DIOXIDE 21.8 mmol/L (21.0-32.0); CREATININE - SERUM 1.6 mg/dL (0.6-1.3); PHOSPHOROUS 4.8 mg/dL (2.5-4.9); POTASSIUM - SERUM 4.8 mmol/L (3.5-5.1); PROTEIN - SERUM 6.7 g/dL (6.4-8.2)
--- NOTE | 2020-10-23 05:51 | NUR ---
I have reviewed this patient and I concur with the Shift Assessment completed by the Licensed Practical Nurse today this shift.
[2020-10-23 07:55] VITALS: BP 134/71
--- NOTE | 2020-10-23 10:10 | NUR ---
D/C CARDIZEM DRIP. GAVE PO DOSE PER ORDERS. NOTIFIED TELEMETRY OFF OF DRIP.
[2020-10-23 10:18] LABS: BILIRUBIN NEGATIVE (NEGATIVE); KETONE NEGATIVE (NEGATIVE); NITRITE NEGATIVE (NEGATIVE); UROBILINOGEN NORMAL mg/dL (< 2)
--- NOTE | 2020-10-23 12:00 | NUR ---
PATIENT IN SHOWER.
[2020-10-23 12:22] VITALS: BP 138/88
[2020-10-23 15:51] VITALS: BP 130/90
--- NOTE | 2020-10-23 17:30 | NUR ---
KARLEE NOT AVAILABLE IN [facility]. CALLED PHARMACY FOR MED.
--- NOTE | 2020-10-23 17:59 | NUR ---
D/C RIGHT AC IV, TIP INTACT. LEAKING.
--- NOTE | 2020-10-23 18:01 | NUR ---
MULTAQ STILL NOT AVAILABLE IN [facility].
[2020-10-23 21:04] VITALS: BP 117/69
--- NOTE | 2020-10-23 23:25 | NUR ---
PT SITTING UP IN BED. ON PHONE & WATCHING BASKETBALL. PLEASANT & COOPERATIVE. STATES THAT HE HAD A REACTION TO A MEDICATION LAST NIGHT. NO C/O VOICED AT PRESENT. HR REMAINS 130'S & A FIB
[2020-10-24] VITALS (13 sets, daily range): BP systolic 110–139; BP diastolic 72–89
[2020-10-24 06:20] LABS: BASOPHILS 0.3 % (0-2); EOSINOPHILS 2.9 % (0-7); HEMATOCRIT 40.6 % (42.0-54.0); HEMOGLOBIN 13.2 g/dL (13.5-17.5); LYMPHOCYTES 34.5 % (15-50); MCHC 32.7 g/dL (31.0-37.0); MCV 91.9 fL (80.0-100.0); MONOCYTES 9.9 % (2-11); NEUTROPHILS 52.4 % (40-80); PLATELET COUNT 229 10x3/uL (130-400); RBC 4.41 10x6/uL (4.20-6.10); RDW 16.3 % (11.5-14.5); WBC 6.6 10x3/uL (4.8-10.8)
[2020-10-24 06:36] LABS: ALBUMIN 2.9 g/dL (3.4-5.0); BILIRUBIN - TOTAL 1.06 mg/dL (0.2-1.3); CALCIUM 8.5 mg/dL (8.5-10.1); CARBON DIOXIDE 26.1 mmol/L (21.0-32.0); CREATININE - SERUM 1.3 mg/dL (0.6-1.3); MAGNESIUM - SERUM 1.8 mg/dL (1.8-2.4); PHOSPHOROUS 4.5 mg/dL (2.5-4.9); PROTEIN - SERUM 6.5 g/dL (6.4-8.2)
[2020-10-24 06:39] LABS: ANION GAP 13.7 mmol/L (8-16); POTASSIUM - SERUM 3.8 mmol/L (3.5-5.1)
--- NOTE | 2020-10-24 07:00 | NUR ---
PT LYING IN BED WITH EYES CLOSED. RESP EVEN AND UNLABORED. RAISES TO VERBAL STIMULI. O2 [address]PM [address] NC IN [address]. AAO X4. DENIES NEEDS AT THIS TIME. CLIR. BED IN LOWEST POSITION. SIDE RAILS X2
--- NOTE | 2020-10-24 09:24 | NUR ---
I have reviewed this patient and I concur with the Shift Assessment completed by the Licensed Practical Nurse today this shift.
[2020-10-24 10:14] LABS: APTT 35.2 SECONDS (22.8-39.4); INR 1.38 (0.85-1.17); PROTIME 15.7 SECONDS (11.6-15.0)
--- NOTE | 2020-10-24 12:52 | NUR ---
Nutrition Reassessment/Follow-up: Eating well. NPO for thoracentesis today. Nursing reports 2+ LE edema. Diet: NPO PO intake: 100% x 3 yesterday (cardiac diet) No new wt; last wt: 352# (10/22)BMI 42.8 Labs noted: Alb 2.9 Meds noted: Lasix, Florajen, Protonix, electrolyte protocol Nutrition Diagnosis: -Obesity R/T presumably excessive energy intake AEB BMI 42.8. -Decreased sodium needs R/T heart failure AEB fluid retention. Nutrition Goals: -PO intake >=75% avg of meals/snacks. -Meet est fluid needs without fluid overload. -Stable dry wt/appropriate wt loss. Nutrition Intervention: -Nutrition needs unchanged since initial assessment; no new wt available. -Resume diet when medically feasible. -Need new wt; noted daily wts ordered. -RD will follow up within 7 days if pt still admitted.
--- NOTE | 2020-10-24 13:21 | NUR ---
PT LEFT UNIT FOR PROCEDURE ACCOMPANIED BY HOSPITAL STAFF
--- NOTE | 2020-10-24 14:00 | NUR ---
PT RETURNED TO UNIT FROM PROCEDURE. DRESSING TO RIGHT RIBS C/D/I. VS WNL. O2 [address]PM [address] NC IN PL[address]. INSTRUCTED TO REMAIN ON BED REST WITH BRP. CLIR. BED IN LOWEST POSITION. SIDE RAILS X2
[2020-10-24 14:25] LABS: PROTEIN - BODY FLUID 2.8 G/DL
[2020-10-24 16:13] LABS: MACROPHAGES BF 2 %; MESOTHELIALS BF 6 %; NEUT - BF 28 %
[2020-10-25] VITALS (7 sets, daily range): BP systolic 110–137; BP diastolic 55–74
--- NOTE | 2020-10-25 07:10 | NUR ---
Lying in bed, awake/alert/oriented, T/R self ad bigg, cont of B/B with BRPs per self ad bigg, denies pain/other discomfort at this time, call light/phone/water within reach, no s/s of acute distress observed.
[2020-10-25 07:19] LABS: ALBUMIN 2.9 g/dL (3.4-5.0); ANION GAP 11.9 mmol/L (8-16); BILIRUBIN - TOTAL 1.12 mg/dL (0.2-1.3); CALCIUM 8.6 mg/dL (8.5-10.1); CARBON DIOXIDE 26.8 mmol/L (21.0-32.0); CREATININE - SERUM 1.4 mg/dL (0.6-1.3); MAGNESIUM - SERUM 1.6 mg/dL (1.8-2.4); PHOSPHOROUS 4.4 mg/dL (2.5-4.9); POTASSIUM - SERUM 3.7 mmol/L (3.5-5.1); PROTEIN - SERUM 6.7 g/dL (6.4-8.2)
[2020-10-25 07:26] LABS: BASOPHILS 0.7 % (0-2); EOSINOPHILS 2.8 % (0-7); HEMATOCRIT 42.3 % (42.0-54.0); HEMOGLOBIN 13.8 g/dL (13.5-17.5); LYMPHOCYTES 31.5 % (15-50); MCH 30.3 pg (26.0-34.0); MCHC 32.7 g/dL (31.0-37.0); MCV 92.6 fL (80.0-100.0); MEAN PLATELET VOLUME 8.7 fL (7.4-10.4); MONOCYTES 10.2 % (2-11); NEUTROPHILS 54.8 % (40-80); PLATELET COUNT 256 10x3/uL (130-400); RBC 4.57 10x6/uL (4.20-6.10); RDW 16.5 % (11.5-14.5); WBC 6.4 10x3/uL (4.8-10.8)
--- NOTE | 2020-10-25 08:19 | EC ---
PATIENT:JOSE ANTONIO EMERY DATE OF SERVICE: 10/21/20 SEX: M MEDICAL RECORD: [id number] DATE OF : [birth year] LOCATION:D.M2 D.210 AGE OF PATIENT: 34 ADMISSION DATE: 10/21/20 REFERRING PHYSICIAN: INTERPRETING PHYSICIAN: TRINY RODRIGUEZ MD ECHOCARDIOGRAM REPORT ECHO CHARGES 4 ECHO COMPLETE Date: 10/22/20 CLINICAL DIAGNOSIS: CHF ECHOCARDIOGRAPHIC MEASUREMENTS (adult normal given) AC root (d.<3.7cm) 3.4 cm LV Septum d (<1.2 cm> 1.0 cm Valve Excursion 2.3 cm LV Septum (systole) 1.1 cm Left Atria (s.<4.0cm> 4.9 cm LVPW d(<1.2cm) 0.7 cm RV (d.<2.3cm) 3.5 cm LVPW (sytole) 0.9 cm LV diastole(<5.6CM) 7.1 cm MV E-F(>70mm/sec) cm LV systole 5.5 cm LVOT Diameter 1.9 cm MV exc.(>10mm) 1.4 cm Est.ejection fraction (50-75%) % DOPPLER: LVIT cm/sec A cm/sec E cm/sec LA cm/sec RVSP 38 mmHg LVOT cm/sec AOP1/2T m/s Asc. Ao cm/sec RVOT cm/sec RA cm/sec PA cm/sec AV Gradient Peak mmHg AV Mean mmHg AV Area cm MV Gradient Peak mmHg MV Mean mmHg MV Area cm COMMENTS: Mining Engineer: Cat SINGH Assistant Professor Of Criminal Justice: 3 Dr. Nagel TAPE# Pericardial Effusion N DATE OF SERVICE: Adequate 2D, color flow imaging, spectral Doppler, and M-Mode. No LVH. LV internal dimensions are dilated. LV is globally hypokinetic, reduced EF, estimated EF 15% to 20%. Aortic valve is tricuspid. No evidence of stenosis by Doppler interrogation. Left atrium grossly appears normal. Mitral valve shows no prolapse. Mild MR. Right-sided chambers are grossly normal. Moderate TR by color flow imaging. ECHOCARDIOGRAM REPORT [id number] JOSE ANTONIO EMERY TRANSINT:[id number] Voice Confirmation ID: [id number] DOCUMENT ID: [id number] TRINY RODRIGUEZ MD at 0819 CC: [id number] DICTATION DATE: 10/24/20 1614 SIDE SEAM TENDER: 10/24/20 2359 ADM IN [facility] [address] [id number]
[2020-10-25] MEDS ORDERED: ENTRESTO 24 MG1 EACH PO (12:14)
[2020-10-25] MEDS ORDERED: TESSALON PERLE100 MG PO (12:14)
[2020-10-25] MEDS ORDERED: CARDIZEM CD180 MG PO (12:14)
[2020-10-25] MEDS ORDERED: MUCINEX DM ER1 EAC1 PO (12:14)
[2020-10-25] MEDS ORDERED: MULTAQ400 MG PO (12:14)
[2020-10-25] MEDS ORDERED: MELATONIN 3 MG1 TAB PO (12:15)
[2020-10-25] MEDS ORDERED: FLUTICASONE PRO16 GM NASAL (12:15)
[2020-10-25] MEDS ORDERED: LASIX40 MG PO (12:15)
[2020-10-25] MEDS ORDERED: FLORAJEN DIGES1 EACH PO (12:15)
[2020-10-25] MEDS ORDERED: PROTONIX40 MG PO (12:15)
[2020-10-25] MEDS ORDERED: VIBRAMYCIN 100100 MG PO (12:16)
[2020-10-25] MEDS ORDERED: K-DUR20 MEQ PO (12:16)
[2020-10-25] MEDS ORDERED: OMNICEF300 MG PO (12:16)
[2020-10-25] MEDS ORDERED: Saline Mist NASAL SP NASAL (12:17)
--- NOTE | 2020-10-25 23:09 | NUR ---
1929-- UP AD FILIBERTO IN ROOM. ASSISTED W/ REPLACING TELE PATCHES. STATES THAT HE FEELS MUCH BETTER. ON ROOM AIR. NO C/O VOICED
[2020-10-26 03:45] VITALS: BP 142/61
[2020-10-26 06:49] LABS: BASOPHILS 0.6 % (0-2); EOSINOPHILS 3.4 % (0-7); LYMPHOCYTES 38.2 % (15-50); MCH 29.8 pg (26.0-34.0); MCHC 32.6 g/dL (31.0-37.0); MCV 91.3 fL (80.0-100.0); MEAN PLATELET VOLUME 8.6 fL (7.4-10.4); MONOCYTES 10.4 % (2-11); NEUTROPHILS 47.4 % (40-80); PLATELET COUNT 288 10x3/uL (130-400); RBC 5.04 10x6/uL (4.20-6.10); RDW 16.4 % (11.5-14.5); WBC 5.6 10x3/uL (4.8-10.8)
[2020-10-26 06:54] LABS: ALBUMIN 2.8 g/dL (3.4-5.0); BILIRUBIN - TOTAL 1.15 mg/dL (0.2-1.3); CALCIUM 8.6 mg/dL (8.5-10.1); CARBON DIOXIDE 30.3 mmol/L (21.0-32.0); CREATININE - SERUM 1.3 mg/dL (0.6-1.3); MAGNESIUM - SERUM 1.9 mg/dL (1.8-2.4); PHOSPHOROUS 4.6 mg/dL (2.5-4.9); POTASSIUM - SERUM 3.3 mmol/L (3.5-5.1); PROTEIN - SERUM 6.4 g/dL (6.4-8.2)
--- NOTE | 2020-10-26 07:30 | NUR ---
Lying in bed awake/alert/oriented, T/R self ad bigg, cont of B/B with BRPs per self ad bigg, denies pain/other discomfort at this time, call light/phone/water within reach, no s/s of acute distress observed.
[2020-10-26 08:06] VITALS: BP 116/83
[2020-10-26 10:12] LABS: ACID FAST SMEAR Negative (()); AFB SPECIMEN PROCESSING Concentration (())
--- NOTE | 2020-10-26 11:21 | MORECARE ---
CASE MANAGEMENT DISCHARGE SUMMARY PATIENT: JOSE ANTONIO EMERY UNIT: [id number] ADM DATE: 10/21/20 AGE: 34 : 83 SEX: M ROOM/BED: D.2108 AUTHOR: KAY,DOC PHYSICIAN: REFERRING PHYSICIAN: EYAD KINGSTON MD DATE OF SERVICE: 10/26/20 Case Management Discharge Planning Summary DCP REVIEW SUMMARY ANTICIPATED D/C DATE: 10/26/2020 EXPECTED LOS : 5 CASE STATUS: DCP Initiated INITIAL REVIEW: 10/21/2020 INITIAL REVIEWER: Carol Ann Lemus FINAL DISCHARGE DISPOSITION: 01 : Home or Self Care (Routine Discharge) FINAL REVIEWER: FINAL REVIEW DATE: DCP Focus Questions & Answers QUESTION: ANSWER : PATIENT: JOSE ANTONIO EMERY ENCOUNTER: [id number] MEDICAL RECORD#: [id number] ADMISSION DATE: 10/21/2020 DISCHARGE DATE: ATTENDING MD: EYAD HOYOS : AGE: 34 MARITAL STATUS: X DC PLAN ID: [id number] FACILITY: [facility] PRINTED ON: 10/26/20 11:20 CT All edits/amendments must be made on the electronic document DICTATION DATE: 10/26/20 112 PHONOGRAPH NEEDLE TIP MAKER: DM 10/26/20 112 RPT#: [id number] DC DATE: STATUS: ADM IN [facility] [address] [place] [address] END OF REPORT
--- NOTE | 2020-10-26 11:33 | MORECARE ---
CASE MANAGEMENT DISCHARGE SUMMARY PATIENT: JOSE ANTONIO EMERY UNIT: [id number] ADM DATE: 10/21/20 AGE: 34 : 83 SEX: M ROOM/BED: D.1724 AUTHOR: RITA VILLANUEVA PHYSICIAN: REFERRING PHYSICIAN: EYAD KINGSTON MD DATE OF SERVICE: 10/26/20 Case Management Discharge Planning Summary DCP REVIEW SUMMARY ANTICIPATED D/C DATE: 10/26/2020 EXPECTED LOS : 5 CASE STATUS: DCP Initiated INITIAL REVIEW: 10/21/2020 INITIAL REVIEWER: Carol Ann Lemus FINAL DISCHARGE DISPOSITION: 01 : Home or Self Care (Routine Discharge) FINAL REVIEWER: FINAL REVIEW DATE: DCP Focus Questions & Answers DCP Screen QUESTION: ANSWER High Risk Factors: : Hosp related to CHF, COPD, DM, End Stage Ds, CVA, CA DCP Evaluation QUESTION: ANSWER Patient's ability to cope with chronic illness : a. Adequate (0-3 ED visits in 6 mos., adequate financial resources, attends scheduled appts.) Patient's current cognitive status: : Intermittently confused / memory changes Family / Caregiver's ability to cope with chronic illness: : a. Adequate (ability to meet patient's medical needs, ensures patient attends medical appts.) Patient and/or caregiver agree upon recommended discharge plan? : Yes Physical Status: : Independent with ADL's Family / Caregiver's ability to cope with chronic illness: : a. Adequate (ability to meet patient's medical needs, ensures patient attends medical appts.) Functional screen assessment: : Basic needs can adequately be met by self Does the patient have the ability to pay for or attain post discharge needs / services? : N/A Partial Dependence, assistance required for: : Ambulation / Mobility Living Arrangements: : Home Alone with Support Is there a likelihood that the patient will require additional services to return to the preadmission environment? : N/A Equipment needed for post hospitalization: : None Baseline cognitive status: : *Oriented to person, place, situation, time and present Patient with capacity for self-care or can be cared for in same environment as prior to hospitalization? : Yes Results of this evaluation have been discussed with: : Patient Physical environment modification needed / anticipated for discharge: : N/A Medication Management: : Patient states can afford medications Medication Management: : Patient states they do have transportation to filler picker medications Medication Management: : Patient states can read and understand medication labels Pharmacy name(s): : [facility] Planned post hospital services available for patient? : N/A Does Patient have transportation to get home and to follow-up medical appointments when discharged from the hospital? : Yes Planned post hospital services covered by insurance plan? : N/A Would patient like to participate in any Care Coordination programs (if applicable): : Not applicable Does the patient have electricity at home? : Yes Does the patient have running water in their house? : Yes Equipment in use: : None Mental health screen: : No mental health history Psychosocial status: : Independent adult (18-64) Abuse/Neglect: : Alcohol use - History of Resources / Services in place: : None DCP Re-evaluation QUESTION: ANSWER Would patient like to participate in any Care Coordination programs (if applicable): : Not applicable PATIENT: JOSE ANTONIO EMERY ENCOUNTER: [id number] MEDICAL RECORD#: [id number] ADMISSION DATE: 10/21/2020 DISCHARGE DATE: ATTENDING MD: EYAD HOYOS : AGE: 34 MARITAL STATUS: X DC PLAN ID: [id number] FACILITY: [facility] PRINTED ON: 10/26/20 11:33 CT All edits/amendments must be made on the electronic document DICTATION DATE: 10/26/20 113 FEDERAL JAVA DEVELOPER: OPHELIA 10/26/20 113 RPT#: [id number] DC DATE: STATUS: ADM IN [facility] [address] [place] [address] END OF REPORT
--- NOTE | 2020-10-26 11:57 | MORECARE ---
CASE MANAGEMENT DISCHARGE SUMMARY PATIENT: JOSE ANTONIO EMERY UNIT: [id number] ADM DATE: 10/21/20 AGE: 34 : 83 SEX: M ROOM/BED: D.2100 AUTHOR: KAY,DOC PHYSICIAN: REFERRING PHYSICIAN: EYAD KINGSTON MD DATE OF SERVICE: 10/26/20 Case Management Discharge Planning Summary COMMENTS ENTERED DATE: 10/26/20 11:47 CT COMMENT TYPE: Discharge Planning REVIEWER: Carol Ann Lemus CM met with patient to complete discharge planning assessment and offer availability of needed services. Patient states that he lives independently at home prior to admission. Pt verified that home environment is safe and has electricity and running water. Patient denies need for transportation and state that he has funds for services and medications if needed. PCP is Dr. Hicks and patient uses [facility] for pharmacy. CM offered and discussed home health, rehab services, and need for any medical equipment. Patient did not express need for offered services at this time. Transportation home will be provided by [facility] ([phone]). Walk test performed and patient does not need home O2. DCP REVIEW SUMMARY ANTICIPATED D/C DATE: 10/26/2020 EXPECTED LOS : 5 CASE STATUS: DCP Initiated INITIAL REVIEW: 10/21/2020 INITIAL REVIEWER: Carol Ann Lemus FINAL DISCHARGE DISPOSITION: 01 : Home or Self Care (Routine Discharge) FINAL REVIEWER: FINAL REVIEW DATE: DCP Focus Questions & Answers DCP Screen QUESTION: ANSWER High Risk Factors: : Hosp related to CHF, COPD, DM, End Stage Ds, CVA, CA DCP Evaluation QUESTION: ANSWER Patient's ability to cope with chronic illness : a. Adequate (0-3 ED visits in 6 mos., adequate financial resources, attends scheduled appts.) Patient's current cognitive status: : Intermittently confused / memory changes Family / Caregiver's ability to cope with chronic illness: : a. Adequate (ability to meet patient's medical needs, ensures patient attends medical appts.) Patient and/or caregiver agree upon recommended discharge plan? : Yes Physical Status: : Independent with ADL's Family / Caregiver's ability to cope with chronic illness: : a. Adequate (ability to meet patient's medical needs, ensures patient attends medical appts.) Functional screen assessment: : Basic needs can adequately be met by self Does the patient have the ability to pay for or attain post discharge needs / services? : N/A Partial Dependence, assistance required for: : Ambulation / Mobility Living Arrangements: : Home Alone with Support Is there a likelihood that the patient will require additional services to return to the preadmission environment? : N/A Equipment needed for post hospitalization: : None Baseline cognitive status: : *Oriented to person, place, situation, time and present Patient with capacity for self-care or can be cared for in same environment as prior to hospitalization? : Yes Results of this evaluation have been discussed with: : Patient Physical environment modification needed / anticipated for discharge: : N/A Medication Management: : Patient states can afford medications Medication Management: : Patient states they do have transportation to excelsior picker medications Medication Management: : Patient states can read and understand medication labels Pharmacy name(s): : [facility] Planned post hospital services available for patient? : N/A Does Patient have transportation to get home and to follow-up medical appointments when discharged from the hospital? : Yes Planned post hospital services covered by insurance plan? : N/A Would patient like to participate in any Care Coordination programs (if applicable): : Not applicable Does the patient have electricity at home? : Yes Does the patient have running water in their house? : Yes Equipment in use: : None Mental health screen: : No mental health history Psychosocial status: : Independent adult (18-64) Abuse/Neglect: : Alcohol use - History of Resources / Services in place: : None DCP Re-evaluation QUESTION: ANSWER Would patient like to participate in any Care Coordination programs (if applicable): : Not applicable PATIENT: JOSE ANTONIO EMERY ENCOUNTER: [id number] MEDICAL RECORD#: [id number] ADMISSION DATE: 10/21/2020 DISCHARGE DATE: ATTENDING MD: EYAD HOYOS : AGE: 34 MARITAL STATUS: X DC PLAN ID: [id number] FACILITY: [facility] PRINTED ON: 10/26/20 11:57 CT All edits/amendments must be made on the electronic document DICTATION DATE: 10/26/201156 BACCARAT MANAGER: OPHELIA 10/26/20 1157 RPT#: [id number] DC DATE: STATUS: ADM IN [facility] [address] [place] [address] END OF REPORT
[2020-10-26 13:12] LABS: FUNGUS STAIN Final report (())
--- NOTE | 2020-10-26 14:35 | NUR ---
Provided discharge instructions/education to which pt voiced understanding, discontinued IV access/cardiac telemetry monitoring.
--- NOTE | 2020-10-26 15:01 | NUR ---
DC'd home to self care in stable condition via w/c accompanied by hospital staff and family member, no s/s of acute distress observed.
--- NOTE | 2020-10-26 20:09 | MORECARE ---
CASE MANAGEMENT DISCHARGE SUMMARY PATIENT: JOSE ANTONIO EMERY UNIT: [id number] ADM DATE: 10/21/20 AGE: 34 : 83 SEX: M ROOM/BED: D.2101 AUTHOR: KAY,DOC PHYSICIAN: REFERRING PHYSICIAN: EYAD KINGSTON MD DATE OF SERVICE: 10/26/20 Case Management Discharge Planning Summary COMMENTS ENTERED DATE: 10/26/20 11:47 CT COMMENT TYPE: Discharge Planning REVIEWER: Carol Ann Lemus CM met with patient to complete discharge planning assessment and offer availability of needed services. Patient states that he lives independently at home prior to admission. Pt verified that home environment is safe and has electricity and running water. Patient denies need for transportation and state that he has funds for services and medications if needed. PCP is Dr. Hicks and patient uses [facility] for pharmacy. CM offered and discussed home health, rehab services, and need for any medical equipment. Patient did not express need for offered services at this time. Transportation home will be provided by [facility] ([phone]). Walk test performed and patient does not need home O2. DCP REVIEW SUMMARY ANTICIPATED D/C DATE: 10/26/2020 EXPECTED LOS : 5 CASE STATUS: DCP Initiated INITIAL REVIEW: 10/21/2020 INITIAL REVIEWER: Carol Ann Lemus FINAL DISCHARGE DISPOSITION: 01 : Home or Self Care (Routine Discharge) FINAL REVIEWER: FINAL REVIEW DATE: DCP Focus Questions & Answers DCP Screen QUESTION: ANSWER High Risk Factors: : Hosp related to CHF, COPD, DM, End Stage Ds, CVA, CA DCP Evaluation QUESTION: ANSWER Patient's ability to cope with chronic illness : a. Adequate (0-3 ED visits in 6 mos., adequate financial resources, attends scheduled appts.) Patient's current cognitive status: : Intermittently confused / memory changes Family / Caregiver's ability to cope with chronic illness: : a. Adequate (ability to meet patient's medical needs, ensures patient attends medical appts.) Patient and/or caregiver agree upon recommended discharge plan? : Yes Physical Status: : Independent with ADL's Family / Caregiver's ability to cope with chronic illness: : a. Adequate (ability to meet patient's medical needs, ensures patient attends medical appts.) Functional screen assessment: : Basic needs can adequately be met by self Does the patient have the ability to pay for or attain post discharge needs / services? : N/A Partial Dependence, assistance required for: : Ambulation / Mobility Living Arrangements: : Home Alone with Support Is there a likelihood that the patient will require additional services to return to the preadmission environment? : N/A Equipment needed for post hospitalization: : None Baseline cognitive status: : *Oriented to person, place, situation, time and present Patient with capacity for self-care or can be cared for in same environment as prior to hospitalization? : Yes Results of this evaluation have been discussed with: : Patient Physical environment modification needed / anticipated for discharge: : N/A Medication Management: : Patient states can afford medications Medication Management: : Patient states they do have transportation to clam picker medications Medication Management: : Patient states can read and understand medication labels Pharmacy name(s): : [facility] Planned post hospital services available for patient? : N/A Does Patient have transportation to get home and to follow-up medical appointments when discharged from the hospital? : Yes Planned post hospital services covered by insurance plan? : N/A Would patient like to participate in any Care Coordination programs (if applicable): : Not applicable Does the patient have electricity at home? : Yes Does the patient have running water in their house? : Yes Equipment in use: : None Mental health screen: : No mental health history Psychosocial status: : Independent adult (18-64) Abuse/Neglect: : Alcohol use - History of Resources / Services in place: : None DCP Re-evaluation QUESTION: ANSWER Would patient like to participate in any Care Coordination programs (if applicable): : Not applicable PATIENT: JOSE ANTONIO EMERY ENCOUNTER: [id number] MEDICAL RECORD#: [id number] ADMISSION DATE: 10/21/2020 DISCHARGE DATE: 10/26/2020 ATTENDING MD: EYAD HOYOS : AGE: 34 MARITAL STATUS: X DC PLAN ID: [id number] FACILITY: [facility] PRINTED ON: 10/26/20 20:09 CT All edits/amendments must be made on the electronic document DICTATION DATE: 10/26/202008 BOOKMOBILE DRIVER: OPHELIA 10/26/202008 RPT#: [id number] DC DATE:10/26/20 STATUS: DIS IN [facility] [address] [place] [address] END OF REPORT
== END 2020-10-26 15:01 | disposition home or self-care (01) | DRG 291 ==
LOC: D.ER 12:00 → D.M2 14:02
PROVIDERS: Family Medicine; Internal Medicine Pulmonary Disease; Specialist; ADMIT Emergency Medicine; ATTEND Emergency Medicine
PROC: 0W993ZZ Drainage of Right Pleural Cavity, Percutaneous Approach (ICD-10-PCS; principal; 2020-10-24 13:32)
DX: I11.0 Hypertensive heart disease with heart failure (principal); J18.9 Pneumonia, unspecified organism; N17.9 Acute kidney failure, unspecified; R04.2 Hemoptysis; J98.11 Atelectasis; I48.92 Unspecified atrial flutter; I48.91 Unspecified atrial fibrillation; I50.23 Acute on chronic systolic (congestive) heart failure; I42.9 Cardiomyopathy, unspecified; J30.9 Allergic rhinitis, unspecified; I08.1 Rheumatic disorders of both mitral and tricuspid valves; I27.20 Pulmonary hypertension, unspecified; I25.2 Old myocardial infarction